=== PATIENT | female | born 2000 | race Caucasian/White ===

== ENCOUNTER → 2021-09-21 | Outpatient (REF) ==
--- NOTE | 2021-09-21 14:59 | Diagnostic Imaging Report ---
Indication: Right forearm injury 2 views the right forearm show no fracture or dislocation. IMPRESSION: Negative right forearm Dictated by: Dictated on workstation # [id number]
--- NOTE | 2021-09-21 15:00 | Diagnostic Imaging Report ---
INDICATION: Right hand injury. FINDINGS: Three views of the right hand show no fracture, dislocation, or other acute abnormalities. IMPRESSION: Negative right hand. Dictated by: Dictated on workstation # [id number]
== END ==
LOC: OCC 14:42
PROVIDERS: ATTEND Nurse Practitioner Family
DX: M79.641 Pain in right hand (principal)
CPT/HCPCS: 73090; 73130

== ENCOUNTER 2022-05-04 22:19 | Emergency (ER) | payer BC, OTHER ==
[~2022-05-04] VITALS: Ht 157.5 cm; Wt 72.0 kg
[2022-05-04 22:30] VITALS: BP 147/88
[2022-05-04 22:54] LABS: BILIRUBIN,URINE NEGATIVE (NEGATIVE); CLARITY,URINE SL CLOUDY; COLOR,URINE YELLOW; GLUCOSE, URINE (UA) NEGATIVE (NEGATIVE); KETONES,URINE NEGATIVE (NEGATIVE); LEUKOCYTE ESTERASE ,URINE 1+ (NEGATIVE); NITRITE,URINE NEGATIVE (NEGATIVE); PH,URINE 7.5 (5-9); PROTEIN,URINE NEGATIVE (NEGATIVE)
[2022-05-04] MEDS ORDERED: HYOSCYAMINE 0.125 MG (LEVSIN) TAB SL ONE (23:00)
[2022-05-04] MEDS ORDERED: LACTATED RINGERS 1,000 ML IV ONE (23:00)
[2022-05-04] MEDS ORDERED: ONDANSETRON 4 MG/2 ML (SDV) Z0FRAN IVP ONE (23:00)
[2022-05-04 23:13] LABS: BACTERIA,URINE FEW /HPF
--- NOTE | 2022-05-04 23:17 | ED General ---
General Chief Complaint: Abdominal/GI Problems Stated Complaint: COVID +, DIARRHEA, ABDOMINAL PAIN Nursing Triage Note: PT PRESENTS WITH C/O ABDOMINAL PAIN AFTER STARTING MEDICATIONS FOR COVID THIS MORNING. SHE STATES SHE WAS DIAGNOSED WITH COVID ON SUNDAY, SHE STARTED MEDICATIONS THIS MORNING AND APPROX 1.5 HOURS LATER DEVELOPED SEVERE ABDOMINAL PAIN AND GREEN DIARRHEA. PT ALSO VOMITED ON THE WAY TO THE ER. Source of Information: Patient History of Present Illness Date Seen by Provider: May 04, 2022 Time Seen by Provider: 22:40 Initial Comments PT ARRIVES VIA POV FROM HOME PT BEGAN GETTING SICK ON Sunday05/02/22 WITH COVID SYMPTOMS: -RUNNY NOSE AND COUGH -LOW GRADE FEVER AND CHILLS -FATIGUE -BODY ACHES SHE HAS ASTHMA AND HAS BEEN USING HER INHALER ( WITH SPACER) TWICE A DAY SINCE SUNDAY, FOR INCREASED SHORTNESS OF BREATH/WHEEZING PT WORKS AT A LONG TER[employer] AND TESTED + FOR COVID ON SUNDAY AT WORK PT IS ALSO IN N[employer] SHE HAD A TELEHEALTH VISIT WITH JONATHAN WALTER AT DR. NOBLE'S OFFICE YESTERDAY 05/03/22 AND WAS PRESCRIBED: -MOLNUPIRAVIR -DEXAMETHASONE -ZITHROMAX FOR POSSIBLE EAR INFECTION--HAVING RIGHT EAR PAIN SHE STARTED ALL THE MEDICATIONS THIS MORNING ABOUT 1 1/2 HOURS AFTER TAKING THE MEDICATIONS, SHE BEGAN TO HAVE SEVERE ABDOMINAL CRAMPING AND DIARRHEA SHE HAS HAD 10-15 STOOLS TODAY--GREEN WATERY DIARRHEA SHE HAS HAD SOME NAUSEA AND VOMITED X 1, ON THE WAY HERE. SHE IS TAKING FLUIDS, AND URINATING SHE CALLED JONATHAN LONG, AND WAS TOLD TO COME TO ER. LMP 04/25/22. NORMAL. NO CONTROL. NO CHRONIC MEDICAL PROBLEMS, OTHER THAN MILD ASTHMA. NORMALLY DOES NOT NEED AN INHALER DAILY. SHE WAS TREATED WITH AUGMENTIN, DOXYCYCLINE AND PREDNISONE 04/07/22 FOR BROCHITIS THOSE SYMPTOMS WERE MUCH BETTER PCP: DR. NOBLE / JONATHAN WALTER. Allergies and Home Medications Allergies Coded Allergies: No Known Drug Allergies (Unverified , 05/04/22) Patient Home Medication List Home Medication List Reviewed: Yes Dicyclomine HCl (Dicyclomine HCl) 20 Mg Tablet, 20 MG PO Q6H Prescribed by: BENJAMIN DIAZ on 05/05/22 0112 Lactobacillus Acidophilus (Acidophilus Lactobacillus) 1 Billion Unit/Gram Powder, 1 GM MC QID Prescribed by: BENJAMIN DIAZ on 05/05/22111 Ondansetron (Ondansetron Odt) 4 Mg Tab.rapdis, 4 MG PO Q4H Prescribed by: BENJAMIN DIAZ on 05/05/22111 Review of Systems Review of Systems Constitutional: see HPI, chills, fever, malaise, weakness EENTM: see HPI, nose congestion Respiratory: see HPI, cough, short of breath Cardiovascular: no symptoms reported Gastrointestinal: see HPI, abdominal pain, diarrhea, loss of appetite, nausea, vomiting Genitourinary: no symptoms reported; No decreased output LMP: Apr 25, 2022 Musculoskeletal: see HPI (BODY ACHES) Skin: no symptoms reported Psychiatric/Neurological: See HPI, Headache Hematologic/Lymphatic: No Symptoms Reported Immunological/Allergic: no symptoms reported Past Rziozzh-Kejise-Tubayt Hx Patient Social History Tobacco Use?: No Substance use?: No Alcohol Use?: No Immunizations Up To Date Influenza Vaccine Up-to-Date: Yes; Up-to-Date Past Medical History Surgeries: Yes (WISDOM TEETH) Respiratory: Yes Asthma Cardiac: No Neurological: No : No Genitourinary: No Gastrointestinal: No Musculoskeletal: No Endocrine: No Cancer: No Psychosocial: No Integumentary: No Blood Disorders: No Physical Exam Vital Signs Vital Signs - First Documented 05/04/22 22:30 Temp 35.9 Resp 16 B/P (MAP) 147/88 (107) Capillary Refill : Less Than 3 Seconds Height, Weight, BMI Height: '" Weight: lbs. oz. kg; 29.00 BMI Method: General Appearance: WD/WN, Other (LOOKS UNCOMFORTABLE, HOLDING LOWER ABDOMEN, AND SLIGHTLY BENT AT WAIST, WALKS AND MOVES VERY SLOWLY. ) HEENT: PERRL/EOMI, TMs Normal, Normal ENT Inspection, Pharynx Normal, Moist Mucous Membranes Neck: Full Range of Motion, Normal Inspection, Non Tender, Supple Respiratory: Normal Breath Sounds, No Accessory Muscle Use, No Respiratory Distress Cardiovascular: Regular Rate, Rhythm, No Edema, No Murmur, Normal Peripheral Pulses Gastrointestinal: Normal Bowel Sounds, No Organomegaly, Soft; No Distended, No Guarding, No Rebound; Tenderness (DIFFUSE LOWER ABDOMINAL TENDERNESS) Back: Normal Inspection, No CVA Tenderness Extremity: Normal Capillary Refill, Normal Inspection, No Pedal Edema Neurologic/Psychiatric: Alert, Oriented x3, No Motor/Sensory Deficits, Normal Mood/Affect, 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 Skin: Normal Color, Warm/Dry Progress/Results/Core Measures Suspected Sepsis SIRS Temperature: Pulse: Respiratory Rate: 16 Laboratory Tests 05/04/22 23:08: White Blood Count 6.0 Blood Pressure 147 /88 Mean: 107 Laboratory Tests 05/04/22 23:08: Creatinine 0.80, Platelet Count 369, Total Bilirubin 0.2 Results/Orders Lab Results Laboratory Tests Test 05/04/22 22:48 05/04/22 23:08 Range/Units Urine Color YELLOW Urine Clarity SL CLOUDY Urine pH 7.5 5-9 Urine Specific [place] 1.015 L 1.016-1.022 Urine Protein NEGATIVE NEGATIVE Urine Glucose (UA) NEGATIVE NEGATIVE Urine Ketones NEGATIVE NEGATIVE Urine Nitrite NEGATIVE NEGATIVE Urine Bilirubin NEGATIVE NEGATIVE Urine Urobilinogen 0.2 < = 1.0 MG/DL Urine Leukocyte Esterase 1+ H NEGATIVE Urine RBC (Auto) NEGATIVE NEGATIVE Urine RBC NONE /HPF Urine WBC 2-5 /HPF Urine Squamous Epithelial Cells 10-25 H /HPF Urine Crystals NONE /LPF Urine Bacteria FEW H /HPF Urine Casts NONE /LPF Urine Mucus NEGATIVE /LPF Urine Culture Indicated YES White Blood Count 6.0 4.3-11.0 10^3/uL Red Blood Count 4.76 3.80-5.11 10^6/uL Hemoglobin 13.3 11.5-16.0 g/dL Hematocrit 40 35-52 % Mean Corpuscular Volume 84 80-99 fL Mean Corpuscular Hemoglobin 28 25-34 pg Mean Corpuscular Hemoglobin Concent 33 32-36 g/dL Red Cell Distribution Width 12.7 10.0-14.5 % Platelet Count 369 130-400 10^3/uL Mean Platelet Volume 10.2 9.0-12.2 fL Immature Granulocyte % (Auto) 0 % Neutrophils (%) (Auto) 78 H 42-75 % Lymphocytes (%) (Auto) 14 12-44 % Monocytes (%) (Auto) 8 0-12 % Eosinophils (%) (Auto) 0 0-10 % Basophils (%) (Auto) 0 0-10 % Neutrophils # (Auto) 4.7 1.8-7.8 10^3/uL Lymphocytes # (Auto) 0.8 L 1.0-4.0 10^3/uL Monocytes # (Auto) 0.5 0.0-1.0 10^3/uL Eosinophils # (Auto) 0.0 0.0-0.3 10^3/uL Basophils # (Auto) 0.0 0.0-0.1 10^3/uL Immature Granulocyte # (Auto) 0.0 0.0-0.1 10^3/uL Sodium Level 136 135-145 MMOL/L Potassium Level 4.1 3.6-5.0 MMOL/L Chloride Level 104 98-107 MMOL/L Carbon Dioxide Level 21 21-32 MMOL/L Anion Gap 11 5-14 MMOL/L Blood Urea Nitrogen 12 7-18 MG/DL Creatinine 0.80 0.60-1.30 MG/DL Estimat Glomerular Filtration Rate 107 BUN/Creatinine Ratio 15 Glucose Level 149 H 70-105 MG/DL Calcium Level 10.2 H 8.5-10.1 MG/DL Corrected Calcium 9.9 8.5-10.1 MG/DL Magnesium Level 1.7 1.6-2.4 MG/DL Total Bilirubin 0.2 0.1-1.0 MG/DL Aspartate Amino Transf (AST/SGOT) 23 5-34 U/L Alanine Aminotransferase (ALT/SGPT) 19 0-55 U/L Alkaline Phosphatase 85 40-136 U/L Total Protein 8.0 6.4-8.2 GM/DL Albumin 4.4 3.2-4.5 GM/DL Amylase Level 67 25-125 U/L Lipase 14 8-78 U/L My Orders Orders - BENJAMIN DIAZ DO Urine Bedside (05/04/22 22:41) Ua Culture If Indicated (05/04/22 22:41) Ed Iv/Invasive Line Start (05/04/22 22:54) Amylase (05/04/22 22:54) Cbc With Automated Diff (05/04/22 22:54) Comprehensive Metabolic Panel (05/04/22 22:54) Lipase (05/04/22 22:54) Magnesium (05/04/22 22:54) Ed Iv/Invasive Line Start (05/04/22 22:54) Lactated Ringers (Lr 1000 Ml Iv Solution (05/04/22 23:00) Ondansetron Injection (Zofran Injectio (05/04/22 23:00) Hyoscyamine Sl Tablet (Levsin Sl Tablet) (05/04/22 23:00) Urine Culture (05/04/22 22:48) Ct Abdomen/Pelvis W (05/04/22 23:20) Ketorolac Injection (Toradol Injection) (05/05/22 01:00) Dicyclomine Capsule (Bentyl Capsule) (05/05/22 01:00) Medications Given in ED Current Medications Medications Dose Ordered Sig/Yogesh Route Start Time Stop Time Status Last Admin Dose Admin Hyoscyamine Sulfate 0.125 mg ONCE ONCE SL 05/04/22 23:00 05/04/22 23:01 DC 05/04/22 23:07 0.125 MG Ketorolac Tromethamine 30 mg ONCE ONCE IVP 05/05/22 01:00 05/05/22 01:01 DC 05/05/22 01:30 30 MG Lactated Ringer's 1,000 ml @ 0 mls/hr Q0M ONCE IV 05/04/22 23:00 05/04/22 23:01 DC 05/04/22 23:07 0 MLS/HR Ondansetron HCl 4 mg ONCE ONCE IVP 05/04/22 23:00 05/04/22 23:01 DC 05/04/22 23:07 4 MG Vital Signs/I&O 05/04/22 22:30 Temp 35.9 Resp 16 B/P (MAP) 147/88 (107) Capillary Refill : Less Than 3 Seconds Blood Pressure Mean: 107 Progress Note : Progress Note PLACED IN ISOLATION ROOM PPE WORN GIVEN: -IV FLUIDS -ZOFRAN -LEVSIN -TORADOL -BENTYL NO VOMITING OR DIARRHEA DURING ER STAY SYMPTOMS IMPROVED AT DISMISSAL NO DETERIORATION IN PT'S CONDITION DURING ER STAY. PT'S SYMPTOMS ARE LIKELY DUE TO MEDICATIONS SHE STARTED ON THIS MORNING, SHE WAS NOT HAVING THESE SYMPTOMS PRIOR TO TAKING THEM, AND THEY BEGAN 1 1/2 HOURS AFTER SHE TOOK THEM. WILL HAVE HER CONTINUE DEXAMETHASONE, SHE HAS HAD INCREASED ASTHMA SYMPTOMS THIS WEEK AND SHE HAS NOT HAD ANY GI PROBLEMS WITH STEROIDS IN THE PAST WILL HOLD ZITHROMAX THERE IS NO SIGNS OF SECONDARY INFECTION AT THIS TIME, AN D COULD BE CAUSING GI SYMPTOMS WILL HOLD MOLNUPIRAVIR, THIS COULD ALSO BE CAUSE OF HER GI SYMPTOMS. UA SHOWED A FEW BACTERIA, WILL WAIT FOR CULTURE BEFORE PRESCRIBING ANY ADDITIONAL ANTIBIOTICS AT THIS TIME, DUE TO PT'S CURRENT SYMPTOMS. REVIEWED ALL TEST RESULTS, INCLUDING INCIDENTAL FINDING OF LEFT OVARIAN CYST ON CT SCAN, SYMPTOMATIC TREATMENT, DIET, MEDICATIONS, NEED FOR FOLLOW UP, REFERRAL TO MEDICAL SERVICES ASSISTANT, AND RETURN PRECAUTIONS. PT HAS NOT HAD ANY PRIOR VISITS HERE. Diagnostic Imaging Comments CT OF ABDOMEN/PELVIS--PER [facility] VIA FAX AT [id number] -NO ACUTE FINDINGS -5.2 CM LEFT OVARIAN CYST Reviewed: Reviewed by Me Departure Impression Primary Impression: COVID-19 virus infection Additional Impressions: Diarrhea Abdominal pain Left ovarian cyst Disposition: HOME, SELF-CARE Condition: Improved Departure-Patient Inst. Decision time for Depature: 01:08 Referrals: AMARIS WALTER (PCP) Primary Care Physician LESLY PEARL DO Patient Instructions: COVID-19 Overview, Preventing the Spread of an Infectious Disease, Diarrhea, Adult ED, Abdominal Pain, Adult ED, Ovarian Cysts Add. Discharge Instructions: CLEAR LIQUIDS--WATER, BROTH, JELLO, GATORADE BRATS DIET--BANANAS, RICE, APPLESAUCE, TOAST, SALTINES CONTINUE YOUR INHALER WITH SPACER EVERY 4 HOURS NEEDED CONTINUE DEXAMETHASONE PRESCRIBED HOLD AZITHROMYCIN AND MOLNUPIRAVIR AT THIS TIME YOU MAY TAKE TYLENOL AND MOTRIN NEEDED FOR PAIN FOLLOW UP WITH DR. PEARL, MEDICAL SERVICES ASSISTANT, FOR FURTHER EVALUATION OF OVARIAN CYST All discharge instructions reviewed with patient and/or family. Voiced understanding. Scripts Ondansetron (Ondansetron Odt) 4 Mg Tab.rapdis 4 MG PO Q4H for Nausea/Vomiting, #10 TAB Prov: BENJAMIN DIAZ DO 05/05/22 Dicyclomine HCl (Dicyclomine HCl) 20 Mg Tablet 20 MG PO Q6H for Abdominal Pain, #20 TAB Prov: BENJAMIN DIAZ DO 05/05/22 Lactobacillus Acidophilus (Acidophilus Lactobacillus) 1 Billion Unit/Gram Powder 1 GM MC QID for 10 Days, #1 EA Prov: BENJAMIN DIAZ DO 05/05/22 BENJAMIN DIAZ DO May 04, 2022 23:17
[2022-05-04 23:21] LABS: BASOPHILS % (AUTO) 0 % (0-10); EOSINOPHILS % (AUTO) 0 % (0-10); HEMATOCRIT 40 % (35-52); HEMOGLOBIN 13.3 g/dL (11.5-16.0); LYMPHOCYTES # (AUTO) 0.8 10^3/uL (1.0-4.0); LYMPHOCYTES % (AUTO) 14 % (12-44); MEAN CORPUSCULAR HEMOGLOBIN 28 pg (25-34); MEAN CORPUSCULAR HGB CONC 33 g/dL (32-36); MEAN CORPUSCULAR VOLUME 84 fL (80-99); MEAN PLATELET VOLUME 10.2 fL (9.0-12.2); MONOCYTES # (AUTO) 0.5 10^3/uL (0.0-1.0); MONOCYTES % (AUTO) 8 % (0-12); NEUTROPHILS # (AUTO) 4.7 10^3/uL (1.8-7.8); NEUTROPHILS % (AUTO) 78 % (42-75); PLATELET COUNT 369 10^3/uL (130-400)
[2022-05-04 23:37] LABS: ALBUMIN 4.4 GM/DL (3.2-4.5); BILIRUBIN,TOTAL 0.2 MG/DL (0.1-1.0); CALCIUM 10.2 MG/DL (8.5-10.1); CREATININE SERUM 0.8 MG/DL (0.60-1.30); MAGNESIUM 1.7 MG/DL (1.6-2.4); POTASSIUM 4.1 MMOL/L (3.6-5.0)
[2022-05-05] MEDS ORDERED: KETOROLAC 30 MG/ML VIAL IVP ONE (01:00)
[2022-05-05] MEDS ORDERED: DICYCLOMINE 10 MG (BENTYL) CAP PO SCH (01:00)
[2022-05-05] MEDS ORDERED: ONDA4TAB11 PO (01:12)
[2022-05-05] MEDS ORDERED: DICY20TA PO (01:12)
[2022-05-05] MEDS ORDERED: LACT1POW8 MC (01:12)
--- NOTE | 2022-05-05 07:18 | Diagnostic Imaging Report ---
PROCEDURE: CT abdomen and pelvis with contrast. TECHNIQUE: Multiple contiguous axial images were obtained through the abdomen and pelvis after administration of intravenous contrast. Auto Exposure Controls were utilized during the CT exam to meet ALARA standards for radiation dose reduction. All CT scans use one or more of the following dose optimizing techniques: automated exposure control, MA and/or KvP adjustment based on patient size and exam type or iterative reconstruction. INDICATION: Diarrhea abdominal pain COVID positive CT abdomen pelvis with contrast 05/04/2022. FINDINGS: Lung bases clear. Gallbladder contracted. Liver and spleen unremarkable. Adrenal glands and pancreas normal. Kidneys unremarkable. Within the pelvis there is a large cystic lesion left adnexa likely ovarian measuring 5.4 cm in greatest dimension. Minimal free fluid slightly hyperdense noted in the pelvis which could be due to a recently ruptured hemorrhagic cyst with other etiologies not excluded. There is no free air. Appendix normal. There is no acute osseous abnormality. IMPRESSION: 1. Large cystic lesion left adnexa likely ovarian. Pelvic sonography may provide further characterization especially given hyperdense free fluid in the pelvis which is likely hemorrhagic perhaps due to a recently ruptured cyst. Correlate with patient's symptoms. Overall findings agree with the [facility] report Dictated by: Dictated on workstation # [id number]
== END 2022-05-05 01:41 | disposition home or self-care (01) ==
LOC: EDUNIT# 22:19 → ER 22:22
DX: U07.1 COVID-19 (principal); R19.7 Diarrhea, unspecified; N83.202 Unspecified ovarian cyst, left side; J45.909 Unspecified asthma, uncomplicated; Z79.51 Long term (current) use of inhaled steroids; Z73.0 Burn-out
CPT/HCPCS: 36415; 74177; 80053; 81000; 82150; 83690; 83735; 84703; 85025; 87088

== ENCOUNTER → 2022-05-15 | Outpatient (CLI) | payer BC ==
[~2022-05-15] MED LIST: DICY20TA PO; LACT1POW8 MC; ONDA4TAB11 PO
--- NOTE | 2022-05-15 11:36 | Diagnostic Imaging Report ---
PROCEDURE: Pelvic comp/transvaginal sonogram. TECHNIQUE: Complete transabdominal and transvaginal pelvic ultrasound was performed. In addition, limited pelvic Doppler was performed. INDICATION: Left ovarian cyst. COMPARISON: Correlation is made with the recent CT study from 05/04/2022. FINDINGS: The uterus is anteverted measuring 4.8 x 3.3 x 4.7 cm. The endometrium is 9 mm in thickness. No myometrial mass is detected. The right ovary measures 2.4 x 1.3 x 2.0 cm and the left ovary measures 2.5 x 0.8 x 1.4 cm. There is a left adnexal cyst noted on the trans-abdominal imaging measuring 3.0 x 2.2 x 2.1 cm. A smaller, likely hemorrhagic cyst of the left ovary is noted measuring 1.3 x 0.8 x 0.4 cm. There is blood flow to both ovaries. No free fluid is seen. IMPRESSION: Left adnexal cyst. These do measure smaller than the adnexal cyst noted on the CT study from 05/04/2022. Dictated by: Dictated on workstation # [id number]
== END ==
LOC: RAD 09:35
PROVIDERS: ATTEND Obstetrics & Gynecology
DX: N83.292 Other ovarian cyst, left side (principal)
CPT/HCPCS: 76830; 76856